=== PATIENT | female | born 1980 | race African-American/Black ===

== ENCOUNTER 2017-03-16 22:54 | Emergency (ER) | payer SELFPAY ==
[~2017-03-16] VITALS: Ht 170.2 cm; Wt 73.0 kg
[2017-03-16] MEDS ORDERED: FAMOTIDINE 20MG/2ML VIAL IV STA (23:43)
[2017-03-16] MEDS ORDERED: ONDANSETRON HCL 4MG/2ML VIAL IV STA (23:43)
[2017-03-16] MEDS ORDERED: MORPHINE SULFATE 4 MG/ML CPJ (NOT FOR IM USE) IV STA (23:43)
[2017-03-16] MEDS ORDERED: SODIUM CHLORIDE 0.9% 1,000 ML IV ONE (23:43)
[2017-03-16] MEDS ORDERED: KETOROLAC 30MG/ML VIAL IV ONE (23:45)
[2017-03-16] MEDS ORDERED: MORPHINE SULFATE 2 MG/ML CPJ (NOT FOR IM USE) IV SCH (23:45)
[2017-03-17 00:05] LABS: BASOPHILS % 1.2 % (0.0-2.0); EOSINOPHILS % 1.7 % (0.0-5.0); HEMOGLOBIN. 12.7 g/dL (12.0-16.0); LYMPHOCYTES % 43.1 % (20.0-50.0); MEAN CORPUSCULAR HEMOGLOBIN 29.4 pg (28.0-32.0); MEAN CORPUSCULAR VOLUME 87.9 fL (81.0-99.0); MEAN PLATELET VOLUME 9.1 fl (7.4-10.4); MONOCYTES % 6.8 % (2.0-8.0); NEUTROPHILS % 47.2 % (40.0-76.0); PLATELET 276 x1000/uL (130-400); RED BLOOD CELL COUNT 4.32 mill/uL (4.2-5.4); RED CELL DISTRIBUTION WIDTH 13.5 % (11.6-14.6)
[2017-03-17 00:20] LABS: CHLORIDE 104 mEq/L (98-107)
[2017-03-17 00:21] LABS: HCG SCREEN NEGATIVE
[2017-03-17 00:28] LABS: CARBON DIOXIDE 30 mEq/L (21-32)
[2017-03-17 01:02] LABS: *AMPHETAMINES SCREEN URINE NEGATIVE (NEGATIVE); *BARBITURATES SCREEN URINE NEGATIVE (NEGATIVE); *BENZODIAZEPINES SCREEN URINE NEGATIVE (NEGATIVE); *COCAINE SCREEN URINE NEGATIVE (NEGATIVE); CANNABINOID URINE SCREEN NEGATIVE (NEGATIVE); METHADONE URINE SCREEN NEGATIVE (NEGATIVE); OPIATES URINE SCREEN NEGATIVE (NEGATIVE); PHENCYCLIDINE URINE SCREEN NEGATIVE (NEGATIVE)
[2017-03-17 01:38] VITALS: BP 127/79
== END 2017-03-17 04:05 | disposition home or self-care (01) ==
LOC: ER 22:54 → CANBEDREQ 03-17 06:22
DX: N92.0 Excessive and frequent menstruation with regular cycle (principal); K42.0 Umbilical hernia with obstruction, without gangrene; F12.10 Cannabis abuse, uncomplicated; Z98.890 Other specified postprocedural states; Z88.8 Allergy status to other drugs, medicaments and biological substances
CPT/HCPCS: 36415; 74176; 76830; 76856; 80053; 80305; 84703; 85025; 85610; 96374; 99285; J1885; J3490; J7030; Z7610; J2270; J2405